=== PATIENT | female | born 2000 | race Caucasian/White ===

== ENCOUNTER → 2020-11-08 18:06 | Outpatient (CLI) | payer OTHER, SELFPAY ==
[2020-11-08 18:27] LABS: Basophils % 0.2 % (0.1-2.0); Eosinophils # 0.1 K/mm3 (0.0-0.4); Eosinophils % 0.7 % (0.1-12.0); Hematocrit 39.4 % (37.0-47.0); Hemoglobin 13.4 g/dL (12.2-16.2); Lymphocytes # 2.1 K/mm3 (0.7-4.5); Lymphocytes % 27.2 % (10-50); Mean Corpuscular Hemoglobin 27.4 pg (27.0-31.2); Mean Corpuscular Volume 80.4 fl (81-99); Mean Platelet Volume 8.8 fl (7.4-10.4); Monocytes # 0.3 K/mm3 (0.1-1.0); Monocytes % 4.3 % (1.7-9.3); Neutrophils # 5.2 K/mm3 (1.8-7.8); Neutrophils % 67.5 % (37.0-80.0); Platelet Count 341 K/mm3 (142-424); Red Cell Distribution Width 14.9 % (11.5-17.5); White Blood Count 7.7 K/mm3 (4.8-10.8)
[2020-11-08 20:19] LABS: Chloride 107 mmol/L (98-107); Potassium 4.6 mmoL/L (3.5-5.1); Sodium 142 mmol/L (136-145)
[2020-11-08 20:22] LABS: Alanine Aminotransferase 14 U/L (12-78); Albumin Level 4.7 g/dl (3.5-5.0); Albumin/Globulin Ratio 1.3 (1.1-1.8); Alkaline Phosphatase 113 U/L (38-126); Anion Gap 15.6 mEq/L (5-15); Aspartate Amino Transferase 23 U/L (14-36); Bilirubin,Total 0.6 mg/dl (0.2-1.3); Blood Urea Nitrogen 5 mg/dl (7-17); Calcium 9.6 mg/dl (8.4-10.2); Carbon Dioxide 24 mmol/L (22.0-30.0); Chol/HDL Ratio 5.4 (1-3.5); Cholesterol 211 mg/dl (140-200); Estimated Glomerular Filt Rate 105 ml/min (>60); GFR (African American) 127 ML/MIN (>60); Globulin 3.7 g/dL (1.3-3.2); Glucose 100 mg/dl (74-100); HDL Cholesterol 39 mg/dl (40-60); Total Protein,Serum 8.4 g/dl (6.3-8.2); Triglycerides 114 mg/dl (30-150); VLDL Cholesterol 23 mg/dL (0-40)
[2020-11-08 20:33] LABS: Direct LDL Cholesterol 153.41 mg/dL (100-129)
[2020-11-08 20:39] LABS: T4 (Thyroxine) 15.5 ug/dl (5.53-11.0)
[2020-11-08 20:53] LABS: Thyroid Stimulating Hormone 1.64 uIU/mL (0.465-4.68)
[2020-11-08 21:22] LABS: 25-OH Vitamin D, Total < 12.8 ng/mL (30-100)
== END ==
PROVIDERS: Visit Provider Nurse Practitioner Family
DX: J45.909 Unspecified asthma, uncomplicated (principal); E55.9 Vitamin D deficiency, unspecified; Z79.899 Other long term (current) drug therapy
CPT/HCPCS: 80053; 80061; 82306; 84436; 84443; 85025

== ENCOUNTER → 2020-12-30 08:16 | Outpatient (CLI) | payer OTHER, SELFPAY ==
--- NOTE | 2020-12-30 08:16 | US_ITS ---
PROCEDURE: US ABDOMEN LIMITED CLINICAL INDICATION: postprandial vomitng COMPARISON: No exams were available for comparison FINDINGS: PANCREAS: Unremarkable. No obvious mass or abnormal fluid collection. No ductal dilatation LIVER: No focal liver lesions demonstrated. Homogeneous echogenicity. No intrahepatic biliary ductal dilatation evident. There is appropriate direction of blood flow within a non dilated portal vein RIGHT KIDNEY: Unremarkable. Normal size and echogenicity. No hydronephrosis GALLBLADDER: The gallbladder is filled with stones. No gallbladder wall thickening, pericholecystic fluid, or biliary dilatation IMPRESSION: Cholelithiasis Dictated by: Yovany Aj MD 12/30/2020 14:19 Yovany Aj MD in [place] 12/30/2020 14:19
== END ==
PROVIDERS: PCP Physician Assistant; Visit Provider Physician Assistant
DX: R11.10 Vomiting, unspecified (principal)
CPT/HCPCS: 76705

== ENCOUNTER → 2021-01-18 15:07 | Outpatient (CLI) | payer OTHER, SELFPAY ==
[2021-01-18 15:41] LABS: Urine Pregnancy, HCG Qual. Negative (Negative)
[2021-01-18 15:52] LABS: Basophils # 0.1 K/mm3 (0-0.2); Basophils % 0.5 % (0.1-2.0); Eosinophils # 0.1 K/mm3 (0.0-0.4); Eosinophils % 0.7 % (0.1-12.0); Hematocrit 38.9 % (37.0-47.0); Hemoglobin 12.7 g/dL (12.2-16.2); Lymphocytes # 2.6 K/mm3 (0.7-4.5); Lymphocytes % 27.2 % (10-50); Mean Corpuscular HGB Conc 32.5 g/dL (31.8-35.4); Mean Corpuscular Hemoglobin 27.6 pg (27.0-31.2); Mean Corpuscular Volume 84.7 fl (81-99); Mean Platelet Volume 7.9 fl (7.4-10.4); Monocytes # 0.4 K/mm3 (0.1-1.0); Monocytes % 3.8 % (1.7-9.3); Neutrophils # 6.5 K/mm3 (1.8-7.8); Neutrophils % 67.7 % (37.0-80.0); Platelet Count 330 K/mm3 (142-424); Red Blood Count 4.59 M/mm3 (4.20-5.40); Red Cell Distribution Width 14.2 % (11.5-17.5); White Blood Count 9.5 K/mm3 (4.8-10.8)
[2021-01-18 17:39] LABS: Alanine Aminotransferase 20 U/L (12-78); Albumin Level 4.3 g/dl (3.5-5.0); Albumin/Globulin Ratio 1.1 (1.1-1.8); Alkaline Phosphatase 95 U/L (38-126); Anion Gap 19.9 mEq/L (5-15); Aspartate Amino Transferase 24 U/L (14-36); Bilirubin,Total 0.3 mg/dl (0.2-1.3); Blood Urea Nitrogen 8 mg/dl (7-17); Calcium 9.2 mg/dl (8.4-10.2); Carbon Dioxide 25 mmol/L (22.0-30.0); Chloride 101 mmol/L (98-107); Estimated Glomerular Filt Rate 105 ml/min (>60); GFR (African American) 127 ML/MIN (>60); Globulin 3.8 g/dL (1.3-3.2); Glucose 84 mg/dl (74-100); Potassium 3.9 mmoL/L (3.5-5.1); Sodium 142 mmol/L (136-145); Total Protein,Serum 8.1 g/dl (6.3-8.2)
== END ==
PROVIDERS: Visit Provider Surgery
DX: Z01.812 Encounter for preprocedural laboratory examination (principal); Z11.52 Encounter for screening for COVID-19; K80.20 Calculus of gallbladder without cholecystitis without obstruction
CPT/HCPCS: 36415; 80053; 81025; 85025; C9803; U0003; U0005

== ENCOUNTER 2021-01-20 07:27 | Day surgery (SDC) | payer OTHER, SELFPAY ==
[2021-01-18 10:09] VITALS: BMI 35.7
[2021-01-20] VITALS (11 sets, daily range): BP systolic 143–171; BP diastolic 78–102; PULSE 95–123; RESP 12–20; TEMP 36.3–43; O2SAT 97–100
--- NOTE | 2021-01-20 10:47 | HMH.OPNOTE ---
Date of procedure: 01/20/21 Pre-op Diagnosis:: Symptomatic cholelithiasis Post-op Diagnosis:: Same Procedure performed:: Laparoscopic cholecystectomy Surgeon:: Iglesia Choudhury MD Anesthesia: GETDylan Estimated blood loss (mL): 50 Operative findings:: Gallbladder essentially filled with stones Abdominal wall soft tissue injury secondary to size of gallbladder/contents creating increased blood loss at site of subxiphoid trocar Multilayer closure of subxiphoid site for hemostasis Operative note:: After informed consent was obtained, the patient was taken to the operating room and placed in the supine position. General anesthesia was induced and the abdomen was prepped and draped in a sterile fashion. After infiltration with local anesthetic an infraumbilical incision was made. A Veress needle was placed in position. The abdomen was insufflated. A 5 mm optical trocar was placed in position. Under direct visualization, a 12 mm trocar was placed in the subxiphoid position and 2 additional 5 mm trocars were placed in the right upper quadrant. The gallbladder was elevated up and over the liver margin. The tissue around the cystic duct was carefully dissected. 3 clips were placed proximally and the duct was transected with harmonic sowmya. Harmonic sowmya were then utilized to dissect the gallbladder away from the liver margin with careful attention to the control of the cystic artery. The gallbladder was placed in a retrieval bag and removed through the subxiphoid trocar site. The overall size of the gallbladder/contents created soft tissue injury with associated bleeding. A multilayer closure including the neoclose device, 0 Ethibond, and 0 Prolene was utilized to both close the fascia and achieve hemostasis. The right upper quadrant was thoroughly irrigated. No active bleeding or bile leak was noted. The remaining trocars were removed. All wounds were irrigated and skin was closed with 4-0 Monocryl in a subcuticular fashion. Steri-Strips were applied. The patient's anesthetic agents were reversed and extubation was completed prior to transfer to recovery in stable condition. Condition: stable Disposition: PACU Specimens:: Gallbladder Complications:: No immediate
--- NOTE | 2021-01-20 11:02 | HMH.ANESCL ---
[facility] Anesthesia Checklist - Patient Identification Patient Identification: Arm Band, Verbal (Name & ) - Structural Data Admitted From: Home Planned Operative Procedure/s: choly Consent for Planned Operative Procedure(s) Verified: Yes Verified Documents: History and Physical - NPO Status Verified Time NPO: 00:00 - Chart Verification Results Verified: CBC, BMP - Additional verifications Patient : No Anesthesia Reactions: No Hx Blood Transfusions: No Blood Transfusion Reaction: No Cephalosporin Allergy: No Previous Colonoscopy: No - Cardiovascular Assessment Heart Sounds: S1 & S2 Pulse Strength: Baseline Pulse Rhythm: Regular Peripheral Edema: No - Airway Assessment C-Spine Mobility Assessed: Yes TMJ Mobility Assessed: Yes Dentition: Good Dentition - Neurological Assessment Level of Consciousness: Awake, Alert, Appropriate Hx Seizures: No Numbness or tingling in extremities: No - Anesthesia Plan Anesthesia Risk discussed: Yes Anesthesia Plan: Verified ASA Class: II Anesthesia Type: General [facility] History I have reviewed the patient's past medical history: Yes Medical History: Reports:: Asthma, Gastroesophageal Reflux Disease(GERD), MRSA (cheek) Denies:: Cancer, Diabetes Mellitus Type 1, Diabetes Mellitus Type 2, Internal Pacemaker, Seizures *Have you ever received a pneumonia vaccine?: No *Have you received a flu vaccine this season?: No Other Medical History: Reports: Other. Denies: Blood Transfusion Reaction Anesthesia experience/problems:: none Other Surgeries: Yes: No Previous Surgery. No: Pacemaker Amputation: No Fractures: No - *Social History Last grade of school completed: Some college Smoking Status: Never smoker Alcohol Intake: never Substance Use Type: denies use *Occupational Status:: other Housing: house *Travel in the last 8 weeks: None Family Hx:: No significant family history
--- NOTE | 2021-01-20 11:03 | HMH.ANESI ---
[facility] Anesthesia Record Part I Intake, IV Amount: 850 Estimated blood loss (mL): 10 Urine output (mL): 0 Blood Products used (#): none Blood Pressure: 143/97 SaO2: 97 Pulse Rate: 100 Respiratory Rate: 20 Temperature: 97.3 F Patient is:: Awake, Stable Stable to PACU at:: 11:00
--- NOTE | 2021-01-21 07:50 | P.PN_ITS ---
[facility] Anesthesia Record Part II Discharge Time: 11:30 Destination: Surgical Day Care (OP Surgery) PACU nurse assessment reviewed?: Yes Patient Condition:: Good Anesthesia Complications:: None Swallowing reflex intact?: Yes Cyanosis?: No Blood Pressure: 149/81 Pulse Rate: 101 Temperature: 97.2 F Mental Status: Alert & Oriented Pain level:: 1 Nausea and/or vomitting:: None Intake, IV Amount: 50
[2021-01-21 07:51] VITALS: BP 149/81; PULSE 101; TEMP 36.2
== END 2021-01-20 12:40 | disposition home or self-care (01) ==
LOC: OR 07:29
PROVIDERS: PCP Physician Assistant; Visit Provider Surgery
PROC: 0FT44ZZ Resection of Gallbladder, Percutaneous Endoscopic Approach (ICD-10-PCS; CPT 47562; principal; 2021-01-20 09:15)
DX: K80.20 Calculus of gallbladder without cholecystitis without obstruction (principal); J45.909 Unspecified asthma, uncomplicated; K21.9 Gastro-esophageal reflux disease without esophagitis; Z86.14 Personal history of Methicillin resistant Staphylococcus aureus infection; Z79.899 Other long term (current) drug therapy
CPT/HCPCS: 47562; J2405; J2710

== ENCOUNTER → 2021-05-03 14:18 | Outpatient (CLI) | payer OTHER, SELFPAY | PROVIDERS: Visit Provider Nurse Practitioner | DX: Z20.822 Contact with and (suspected) exposure to COVID-19 (principal) | CPT/HCPCS: C9803; U0003; U0005 ==

== ENCOUNTER → 2021-05-27 19:46 | Outpatient (CLI) | payer OTHER, SELFPAY | PROVIDERS: PCP Physician Assistant; Visit Provider Nurse Practitioner Family | DX: U07.1 COVID-19 (principal) | CPT/HCPCS: C9803; U0003; U0005 ==

== ENCOUNTER → 2021-10-06 07:37 | Outpatient (CLI) | payer OTHER, SELFPAY ==
[2021-10-05 17:49] LABS: Alanine Aminotransferase 16 U/L (12-78); Albumin Level 4.3 g/dl (3.5-5.0); Albumin/Globulin Ratio 1.1 (1.1-1.8); Alkaline Phosphatase 95 U/L (38-126); Aspartate Amino Transferase 21 U/L (14-36); Bilirubin,Total 0.3 mg/dl (0.2-1.3); Blood Urea Nitrogen 8 mg/dl (7-17); Calcium 9.4 mg/dl (8.4-10.2); Carbon Dioxide 24 mmol/L (22.0-30.0); Chloride 105 mmol/L (98-107); Chol/HDL Ratio 5.1 (1-3.5); Cholesterol 203 mg/dl (140-200); Estimated Glomerular Filt Rate 104 ml/min (>60); GFR (African American) 125 ML/MIN (>60); Globulin 3.8 g/dL (1.3-3.2); Glucose 86 mg/dl (74-100); HDL Cholesterol 40 mg/dl (40-60); Sodium 140 mmol/L (136-145); Total Protein,Serum 8.1 g/dl (6.3-8.2); Triglycerides 121 mg/dl (30-150); VLDL Cholesterol 24 mg/dL (0-40)
[2021-10-05 17:54] LABS: Basophils # 0.1 K/mm3 (0-0.2); Basophils % 0.8 % (0.1-2.0); Eosinophils # 0.1 K/mm3 (0.0-0.4); Eosinophils % 0.5 % (0.1-12.0); Hematocrit 41.2 % (37.0-47.0); Hemoglobin 13.8 g/dL (12.2-16.2); Lymphocytes # 2.4 K/mm3 (0.7-4.5); Lymphocytes % 26.6 % (10-50); Mean Corpuscular HGB Conc 33.4 g/dL (31.8-35.4); Mean Corpuscular Hemoglobin 28.1 pg (27.0-31.2); Mean Corpuscular Volume 84.1 fl (81-99); Monocytes # 0.4 K/mm3 (0.1-1.0); Monocytes % 4.1 % (1.7-9.3); Neutrophils % 67.9 % (37.0-80.0); Platelet Count 408 K/mm3 (142-424); Red Cell Distribution Width 14.8 % (11.5-17.5); White Blood Count 8.9 K/mm3 (4.8-10.8)
[2021-10-05 18:00] LABS: Direct LDL Cholesterol 131.76 mg/dL (100-129)
[2021-10-05 18:06] LABS: 25-OH Vitamin D, Total 16.3 ng/mL (30-100)
[2021-10-05 18:19] LABS: Thyroid Stimulating Hormone 1.72 uIU/mL (0.465-4.68)
== END ==
PROVIDERS: PCP Physician Assistant; Visit Provider Physician Assistant
DX: I10 Essential (primary) hypertension (principal); E55.9 Vitamin D deficiency, unspecified; Z79.899 Other long term (current) drug therapy
CPT/HCPCS: 80053; 80061; 82306; 84443; 85025

== ENCOUNTER → 2021-12-05 16:39 | Outpatient (CLI) | payer OTHER, SELFPAY | PROVIDERS: PCP Physician Assistant; Visit Provider Physician Assistant | DX: R39.9 Unspecified symptoms and signs involving the genitourinary system (principal); B96.4 Proteus (mirabilis) (morganii) as the cause of diseases classified elsewhere | CPT/HCPCS: 87086; 87088; 87186 ==

== ENCOUNTER → 2022-03-12 14:31 | Outpatient (CLI) | payer OTHER, SELFPAY ==
[2022-03-14 21:08] LABS: QuantiFERON-TB Gold Plus Negative (Negative)
== END ==
PROVIDERS: PCP Physician Assistant; Visit Provider Physician Assistant
DX: Z11.1 Encounter for screening for respiratory tuberculosis (principal)
CPT/HCPCS: 36415; 86480

== ENCOUNTER 2022-04-19 12:22 | Emergency (ER) | payer OTHER, SELFPAY ==
[2022-04-19 13:50] VITALS: BP 140/81; PULSE 101; RESP 17; TEMP 36.9; O2SAT 98; BMI 37.9
--- NOTE | 2022-04-19 13:54 | EXP.UTC ---
Discharge Plan Disposition Patient Disposition: Home, Self-Care Condition: Good Prescriptions Prescriptions: New oseltamivir [Tamiflu] 75 mg capsule 75 mg PO BID Qty: 10 0RF ondansetron 4 mg Tablet,Disintegrating 4 mg PO Q8H PRN (Reason: Nausea) Qty: 20 0RF No Action escitalopram oxalate [Lexapro] 10 mg tablet 10 mg PO DAILY Qty: 30 2RF azithromycin [Zithromax Z-Cody] 250 mg tablet See Rx Instructions PO .COMPLEX Qty: 6 0RF Rx Instructions: For 250 mg dose pack: take 500 mg today (day 1), then 250 mg for 4 days (days 2-5) PO albuterol sulfate [Ventolin HFA] 90 mcg/actuation HFA aerosol inhaler 2 puff INHALATION Q4-6H PRN (Reason: shortness of breath or wheezing) Qty: 6.7 5RF Rx Instructions: administer with spacer levocetirizine [Xyzal] 5 mg tablet 5 mg PO DAILY fluticasone propionate [Flovent HFA] 110 mcg/actuation HFA aerosol inhaler IH norgestimate-ethinyl estradiol [Sprintec (28)] 0.25-35 mg-mcg tablet 1 tab PO DAILY Qty: 28 11RF ergocalciferol (vitamin D2) 1,250 mcg (50,000 unit) capsule 50,000 unit PO WEEKLY cholecalciferol (vitamin D3) 25 mcg (1,000 unit) tablet 25 mcg PO epinephrine 0.3 mg/0.3 mL auto-injector 0.3 mg SQ ONCE Qty: 2 0RF nebivolol [Bystolic] 2.5 mg tablet 2.5 mg PO DAILY Qty: 90 3RF famotidine 40 mg tablet See Rx Instructions .ROUTE .COMPLEX Qty: 30 2RF Dose Instruction: TAKE ONE TABLET BY MOUTH ONCE A DAY FOR HEARTBURN Rx Instructions: TAKE ONE TABLET BY MOUTH ONCE A DAY FOR HEARTBURN montelukast 10 mg tablet See Rx Instructions .ROUTE .COMPLEX Qty: 30 2RF Dose Instruction: TAKE ONE TABLET BY MOUTH EVERY EVENING FOR ALLERGIES Rx Instructions: TAKE ONE TABLET BY MOUTH EVERY EVENING FOR ALLERGIES azelastine 137 MCG/0.137 ML bottle 137 mcg NS DAILY Referrals Follow up/Referrals: Helena Bishop PA [Primary Care Provider] - See instructions Activity Restrictions/Add. Instructions Additional Instructions/Restrictions: Drink plenty of fluids. Take tylenol or ibuprofen for pain or fever. Take the medications as directed. Follow up with your regular doctor. GO TO THE ER FOR ANY WORSENING SYMPTOMS Clinical Impressions Clinical Impression: Acute viral syndrome Stand Alone Forms Stand Alone Forms: Work/School Release Instructions Patient Instructions: DI for Influenza -- Adult, Oseltamivir Discharge ED Provider: Ike Maria [facility] [place] H[place] General Stated complaint: congestion, runny nose, chills, body aches Time Seen by Provider: 04/19/22 13:53 History of Present Illness Provider Complaint: She states that for the past 2 days she has had fever, chills, and a cough. She was diagnosed with strep throat about 5 days ago. She states that she is still taking the medication, but she felt better from the strep throat before her current symptoms started. Related Data Home Medications Medication Instructions Recorded Confirmed levocetirizine 5 mg tablet (Xyzal) 5 mg PO DAILY alergies 08/03/20 04/16/22 azelastine 137 mcg (0.1 %) nasal 137 mcg intranasal DAILY ALLERGIES 01/18/21 04/16/22 spray aerosol fluticasone propionate 110 inhalation 10/05/21 04/16/22 mcg/actuation HFA aerosol inhaler (Flovent HFA) cholecalciferol (vitamin D3) 25 25 mcg PO 03/15/22 04/16/22 mcg (1,000 unit) tablet ergocalciferol (vitamin D2) 1,250 50,000 unit PO WEEKLY 03/15/22 04/16/22 mcg (50,000 unit) capsule Previous Rx's Medication Instructions Recorded albuterol sulfate 90 mcg/actuation 2 puff inhalation Q4-6H PRN 03/24/20 aerosol inhaler (Ventolin HFA) shortness of breath or wheezing #6.7 grams epinephrine 0.3 mg/0.3 mL 0.3 mg (0.3 mL) SQ ONCE #2 ea 10/06/21 injection, auto-injector nebivolol 2.5 mg tablet (Bystolic) 2.5 mg PO DAILY #90 tabs 01/02/22 norgestimate 0.25 mg-ethinyl 1 tab PO DAILY #28 tabs 02/09/22 estradiol 35 mcg tablet (Spri
[2022-04-19 14:08] LABS: Adenovirus,PCR Not Detected (NotDetected); Bordetella Pertussis Not Detected (NotDetected); Chlamydophila Pneumoniae, PCR Not Detected (NotDetected); Coronavirus 229E Not Detected (NotDetected); Coronavirus NL63 Not Detected (NotDetected); Coronavirus OC43 Not Detected (NotDetected); Coronovirus HKU1,PCR Not Detected (NotDetected); Human Metapneumovirus Not Detected (NotDetected); Influenza A, PCR Not Detected (NotDetected); Influenza AH1, 2009 Not Detected (NotDetected); Influenza AH1, PCR Not Detected (NotDetected); Influenza AH3,PCR Not Detected (NotDetected); Influenza B, PCR Not Detected (NotDetected); Mycoplasma Pneumoniae, PCR Not Detected (NotDetected); Parainfluenza 1, PCR Not Detected (NotDetected); Parainfluenza 2, PCR Not Detected (NotDetected); Parainfluenza 3, PCR Not Detected (NotDetected); Parainfluenza 4, PCR Not Detected (NotDetected); Respiratory Syncytial Virus Not Detected (NotDetected); Rhinovirus/Enterovirus Not Detected (NotDetected)
[2022-04-19 14:20] VITALS: BP 140/81; PULSE 101; RESP 17; TEMP 36.9; O2SAT 98
[2022-04-20 04:41] LABS: Coronavirus 19, PCR Detected (NotDetected)
== END 2022-04-19 14:42 | disposition home or self-care (01) ==
PROVIDERS: Emergency Provider Nurse Practitioner Family; PCP Physician Assistant
DX: U07.1 COVID-19 (principal)
CPT/HCPCS: 87581; 87632; 87798; 99212; C9803; G0463; U0003; U0005

== ENCOUNTER 2022-09-28 14:34 | Emergency (ER) | payer OTHER, SELFPAY ==
[2022-09-28 14:40] VITALS: BP 149/75; PULSE 103; RESP 22; TEMP 37; O2SAT 96; BMI 35.6
[2022-09-28 14:54] LABS: Apearance,Urine Clear (Clear); Color,Urine Yellow (Yellow); Glucose,Urine (UA) Negative (Negative); Ketones,Urine Negative (Negative); Protein,Urine 1+ (Negative)
[2022-09-28 14:55] LABS: Bilirubin,Urine 1+ (Negative); Blood, Urine 1+ (Negative); UTC Leukocyte Esterase,Urine Negative (Negative); UTC Nitrate,Urine Negative (Negative); Urobilinogen,Urine 0.2 EU/dl (0.2)
[2022-09-28 14:57] VITALS: BP 149/75; PULSE 103; RESP 22; TEMP 37; O2SAT 96
--- NOTE | 2022-09-28 15:03 | EXP.UTC ---
Discharge Plan Disposition Patient Disposition: Home, Self-Care Condition: Good Prescriptions Prescriptions: New phenazopyridine [Pyridium] 200 mg tablet 200 mg PO Q8H PRN (Reason: pain) Qty: 6 0RF ciprofloxacin HCl [Cipro] 500 mg tablet 500 mg PO BID 5 Days Qty: 10 0RF No Action levocetirizine [Xyzal] 5 mg tablet 5 mg PO DAILY norgestimate-ethinyl estradiol [Sprintec (28)] 0.25-35 mg-mcg tablet 1 tab PO DAILY famotidine 40 mg tablet 40 mg PO DAILY Rx Instructions: TAKE ONE TABLET BY MOUTH ONCE A DAY FOR HEARTBURN montelukast 10 mg tablet 10 mg PO DAILY Rx Instructions: TAKE ONE TABLET BY MOUTH EVERY EVENING FOR ALLERGIES escitalopram oxalate [Lexapro] 10 mg tablet 10 mg PO DAILY nebivolol 2.5 mg tablet 2.5 mg PO DAILY Rx Instructions: TAKE ONE TABLET BY MOUTH ONCE A DAY Referrals Follow up/Referrals: Helena Bishop PA [Primary Care Provider] - See instructions Activity Restrictions/Add. Instructions Additional Instructions/Restrictions: Take all antibiotics as prescribed until gone Urine culture results should be available in 48-72 hours Clinical Impressions Clinical Impression: UTI (urinary tract infection) Instructions Patient Instructions: DI for Urinary Tract Infection (UTI) Discharge ED Provider: Helena Bishop [facility] General Stated complaint: possible uti Mode of Arrival: Ambulatory Source of Information: Patient Limitations: No Limitations Time Seen by Provider: 09/28/22 15:03 Description of Symptoms (Recalled from Triage Doc. by RN): PATIENT C/O URINARY FREQUENCY, LOWER BACK PAIN, PELVIC PRESSURE, AND BURNING WITH URINATION SINCE SATURDAY HEENT Symptoms (Recalled from RN notes): No Resp Symptoms (Recalled from RN notes): No Skin Symptoms (Recalled from RN notes): No MS Symptoms (Recalled from RN notes): No Functional Status (Recalled from RN notes): WNL History of Present Illness Provider Complaint: Low back pain, dysuria, frequency, pressure X 2 days. No fever. No vomiting or diarrhea. Onset (ago): day(s) (2) Location: pelvis Quality: burning Relieving factors: none Exacerbating factors: none Treatments prior to arrival: none Related Data Home Medications Medication Instructions Recorded Confirmed levocetirizine 5 mg tablet (Xyzal) 5 mg PO DAILY Allergy symptoms 08/03/20 09/28/22 escitalopram oxalate 10 mg tablet 10 mg PO DAILY Depression 09/28/22 09/28/22 (Lexapro) famotidine 40 mg tablet 40 mg PO DAILY Acid reflux 09/28/22 09/28/22 montelukast 10 mg tablet 10 mg PO DAILY Allergy symptoms 09/28/22 09/28/22 nebivolol 2.5 mg tablet 2.5 mg PO DAILY Hypertension 09/28/22 09/28/22 norgestimate 0.25 mg-ethinyl 1 tab PO DAILY control 09/28/22 09/28/22 estradiol 35 mcg tablet (Sprintec (28)) Previous Rx's Medication Instructions Recorded ciprofloxacin HCl 500 mg tablet 500 mg PO BID 5 days #10 tabs 09/28/22 (Cipro) phenazopyridine 200 mg tablet 200 mg PO Q8H PRN pain 6 doses #6 09/28/22 (Pyridium) tabs Allergies Allergy/AdvReac Type Severity Reaction Status Date / Time Penicillins [PENICILLINS] Allergy Unknown Verified 05/14/22 16:18 peanut AdvReac Severe Verified 05/14/22 16:18 paroxetine [From Paxil] AdvReac Intermediate Diarrhea Verified 05/14/22 16:18 Worker's Comp Is this a Worker's Comp case?: No [facility] Disclaimer: The information contained in this section may have been updated after the patient was seen, as this information can be updated by other users. Medical History (Updated 09/28/22 @ 15:08 by JERI Bosch) Allergic rhinitis Anxiety Asthma control History of gastroesophageal reflux (GERD) Hypertension Hypertension Surgical History History of cholecystectomy Social History Smoking Status: Never smoker alcohol intake: nev
== END 2022-09-28 15:11 | disposition home or self-care (01) ==
PROVIDERS: Emergency Provider Physician Assistant; PCP Physician Assistant
DX: N39.0 Urinary tract infection, site not specified (principal); M54.59 Other low back pain; I10 Essential (primary) hypertension; K21.9 Gastro-esophageal reflux disease without esophagitis; J45.909 Unspecified asthma, uncomplicated; F41.9 Anxiety disorder, unspecified; B96.4 Proteus (mirabilis) (morganii) as the cause of diseases classified elsewhere
CPT/HCPCS: 81003; 87086; 87088; 87186; 99212; 99214; G0463

== ENCOUNTER → 2022-11-12 23:29 | Outpatient (CLI) | payer OTHER, SELFPAY | PROVIDERS: PCP Physician Assistant; Visit Provider Physician Assistant | DX: M54.50 Low back pain, unspecified (principal) | CPT/HCPCS: 87086 ==

== ENCOUNTER 2023-06-05 13:13 | Emergency (ER) | payer OTHER, SELFPAY ==
[2023-06-05 13:55] VITALS: BP 147/90; PULSE 87; RESP 18; TEMP 37.1; O2SAT 100; BMI 38.2
--- NOTE | 2023-06-05 14:02 | ED_ITS ---
Discharge Plan Disposition Patient Disposition: Home, Self-Care Condition: Good Prescriptions Prescriptions: New methylprednisolone 4 mg Tablets,Dose Pack 4 mg PO DIRECTED 6 Days Qty: 21 0RF Rx Instructions: Take 1 pack as directed for 6 days [id number] [Bromfed DM] 2-30-10 mg/5 mL Syrup 5 ml PO Q6H PRN (Reason: Cough) Qty: 240 0RF cefdinir 300 mg capsule 300 mg PO BID Qty: 20 0RF No Action levocetirizine [Xyzal] 5 mg tablet 5 mg PO DAILY albuterol sulfate [ProAir HFA] 90 mcg/actuation HFA aerosol inhaler 1 inh inhalation QID fluticasone propionate [Flovent HFA] 44 mcg/actuation HFA aerosol inhaler 1 puff inhalation BID Rx Instructions: administer with spacer norgestimate-ethinyl estradiol [Estarylla] 0.25-35 mg-mcg tablet 1 tab PO DAILY Qty: 28 12RF famotidine 40 mg tablet 40 mg PO DAILY Qty: 90 3RF Rx Instructions: TAKE ONE TABLET BY MOUTH ONCE A DAY FOR HEARTBURN nebivolol 2.5 mg tablet See Rx Instructions .ROUTE .COMPLEX Qty: 90 0RF Dose Instruction: TAKE ONE TABLET BY MOUTH ONCE A DAY Rx Instructions: TAKE ONE TABLET BY MOUTH ONCE A DAY montelukast 10 mg tablet 10 mg PO DAILY Rx Instructions: TAKE ONE TABLET BY MOUTH EVERY EVENING FOR ALLERGIES Referrals Follow up/Referrals: Helena Bishop PA [Primary Care Provider] - See instructions Activity Restrictions/Add. Instructions Additional Instructions/Restrictions: Drink plenty of fluids. Take tylenol for pain or fever. Take the medications as directed. Follow up with your regular doctor. GO TO THE ER FOR ANY WORSENING SYMPTOMS Clinical Impressions Clinical Impression: Asthma exacerbation, Bronchitis Stand Alone Forms Stand Alone Forms: Work/School Release Instructions Patient Instructions: DI for Asthma -- Adult, Cefdinir, Methylprednisolone Discharge ED Provider: Ike Maria [facility] [place] General Stated complaint: SOA, cough Time Seen by Provider: 06/05/23 14:02 History of Present Illness Provider Complaint: She states that for the past 4 days she has had worsening productive cough (greenish sputum), sinus congestion, ear pain, and chest tightness. She has a history of asthma and she states that she feels like she is having an asthma exacerbation. She denies shortness of breath. Related Data Home Medications Medication Instructions Recorded Confirmed levocetirizine 5 mg tablet (Xyzal) 5 mg PO DAILY Allergy symptoms 08/03/20 06/05/23 montelukast 10 mg tablet 10 mg PO DAILY Allergy symptoms 09/28/22 06/05/23 albuterol sulfate 90 mcg/actuation 1 inh inhalation QID 02/20/23 06/05/23 aerosol inhaler (ProAir HFA) fluticasone propionate 44 1 puff inhalation BID 02/20/23 06/05/23 mcg/actuation HFA aerosol inhaler (Flovent HFA) Previous Rx's Medication Instructions Recorded famotidine 40 mg tablet 40 mg PO DAILY Acid reflux #90 tabs 11/06/22 norgestimate 0.25 mg-ethinyl 1 tab PO DAILY #28 tabs 02/20/23 estradiol 35 mcg tablet (Estarylla) nebivolol 2.5 mg tablet See Rx Instructions .Route 05/30/23 .COMPLEX #90 tabs [id number]-[id number] 5 ml PO Q6H PRN Cough #240 mL 06/05/23 2 mg-30 mg-10 mg/5 mL oral syrup (Bromfed DM) cefdinir 300 mg capsule 300 mg PO BID #20 caps 06/05/23 methylprednisolone 4 mg tablets in 4 mg PO DIRECTED 6 days #21 tabs 06/05/23 a dose pack Allergies Allergy/AdvReac Type Severity Reaction Status Date / Time Penicillins [PENICILLINS] Allergy Unknown Verified 06/05/23 14:09 peanut AdvReac Severe Verified 06/05/23 14:09 paroxetine [From Paxil] AdvReac Intermediate Diarrhea Verified 06/05/23 14:09 PFSH PFSH Disclaimer: The information contained in this section may have been updated after the patient was seen, as this information can be updated by other users. 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: Yes ROS Obtained: Yes All systems reviewed & no additional complaints except as documented Constitutional Constitutional: Reports poor appetite Eyes Eyes: Reports system reviewed and no additional complaints, except as documented ENT Ears, Nose, Mouth, and Throat: Reports as per HPI Cardiovascular Cardiovascular: Reports system reviewed and no additional complaints, except as documented and Denies chest pain Respiratory Respiratory: Denies shortness of breath, Reports chest congestion, Reports cough, Denies stridor and Denies wheezing Gastrointestinal Gastrointestingal: Reports system reviewed and no additional complaints, except as documented; Denies abdominal pain, diarrhea or vomiting Musculoskeletal Musculoskeletal: Reports system reviewed and no additional complaints, except as documented and Denies arthralgias Integumentary/Breasts Skin/Breast: Reports system reviewed and no additional complaints, except as documented and Denies rash Neurologic Neurologic: Denies paresthesias Allergic/Immunologic Allergic/Immunologic: Denies wheezing Physical Exam General General appearance: alert and in no apparent distress Eye Eye exam: Present normal appearance, PERRL and EOMI ENT ENT exam: Present mucous membranes moist and normal external ear exam Expanded ENT Exam External ear exam: Present normal external inspection TM/Canal exam: Bilateral TM: erythema and bulging Nose exam: Absent sinus tenderness Nasal speculum exam: Bilateral: normal Mouth exam: Present normal external inspection; Absent drooling Teeth exam: Present normal inspection Throat exam: Present tonsillar erythema and tonsillomegaly Neck Neck exam: Present normal inspection, full ROM and trachea midline; Absent tenderness, lymphadenopathy or thyromegaly Chest Chest inspection: Present normal inspection and symmetric chest wall rise; Absent tenderness or rash Respiratory Respiratory exam: Present normal lung sounds bilaterally; Absent respiratory distress, wheezes, stridor or accessory muscle use Cardiovascular Cardiovascular exam: Present regular rate, normal rhythm and normal heart sounds Abdominal Exam Abdominal exam: Present soft; Absent distention, tenderness, guarding, rebound or rigidity Extremities Exam Extremities exam: Present normal inspection, full ROM and normal capillary r efill; Absent tenderness or calf tenderness Back Exam Back exam: Present normal inspection and full ROM; Absent tenderness Neurological Exam Neurological exam: Present alert and oriented X3 Psychiatric Psychiatric exam: Present normal affect and normal mood Skin Skin exam: Present warm, dry, intact and normal color Lymphatic Lymphatic Findings: no adenopathy Medical Decision Making Medical Records Medical records reviewed: No I reviewed the patient's medical records. Abdifatah Inquiry Pt receiving controlled substance: No
[2023-06-05 15:13] LABS: UTC Influenza A Antigen Negative (Negative)
[2023-06-05 15:14] LABS: UTC Influenza B Antigen Negative (Negative)
[2023-06-05 15:21] VITALS: BP 147/90; PULSE 87; RESP 18; TEMP 37.1; O2SAT 100
== END 2023-06-05 15:15 | disposition home or self-care (01) ==
PROVIDERS: Emergency Provider Nurse Practitioner Family; PCP Physician Assistant
DX: J20.9 Acute bronchitis, unspecified (principal); J45.901 Unspecified asthma with (acute) exacerbation; H92.03 Otalgia, bilateral; R09.81 Nasal congestion; R05.8 Other specified cough; R09.89 Other specified symptoms and signs involving the circulatory and respiratory systems; I10 Essential (primary) hypertension
CPT/HCPCS: 87804; 99212; 99214; G0463

== ENCOUNTER 2023-08-08 13:43 | Emergency (ER) | payer OTHER, SELFPAY ==
[2023-08-08 14:05] VITALS: BP 143/81; PULSE 95; RESP 20; TEMP 36.6; O2SAT 97; BMI 36.6
[2023-08-08 14:18] LABS: Apearance,Urine Clear (Clear); Bilirubin,Urine Negative (Negative); Blood, Urine Negative (Negative); Color,Urine Dark Yellow (Yellow); Glucose,Urine (UA) Negative (Negative); Ketones,Urine Negative (Negative); Protein,Urine Trace (Negative); Specific Gravity, Urine 1.025 (1.005-1.030); UTC Leukocyte Esterase,Urine Trace (Negative); UTC Nitrate,Urine Negative (Negative); Urobilinogen,Urine 0.2 EU/dl (0.2)
[2023-08-08 14:22] VITALS: BP 143/81; PULSE 95; RESP 20; TEMP 36.6; O2SAT 97
--- NOTE | 2023-08-08 14:23 | EXP.UTC ---
Discharge Plan Disposition Patient Disposition: Home, Self-Care Condition: Good Prescriptions Prescriptions: New phenazopyridine [Pyridium] 200 mg tablet 200 mg PO Q8H 2 Days Qty: 6 0RF nitrofurantoin monohyd/m-cryst [Macrobid] 100 mg capsule 100 mg PO Q12H 7 Days Qty: 14 0RF Rx Instructions: must administer with a meal/food No Action levocetirizine [Xyzal] 5 mg tablet 5 mg PO DAILY norgestimate-ethinyl estradiol [Estarylla] 0.25-35 mg-mcg tablet 1 tab PO DAILY Qty: 28 12RF famotidine 40 mg tablet 40 mg PO DAILY Qty: 90 3RF Rx Instructions: TAKE ONE TABLET BY MOUTH ONCE A DAY FOR HEARTBURN nebivolol 2.5 mg tablet See Rx Instructions .ROUTE .COMPLEX Qty: 90 0RF Dose Instruction: TAKE ONE TABLET BY MOUTH ONCE A DAY Rx Instructions: TAKE ONE TABLET BY MOUTH ONCE A DAY montelukast 10 mg tablet 10 mg PO DAILY Rx Instructions: TAKE ONE TABLET BY MOUTH EVERY EVENING FOR ALLERGIES Referrals Follow up/Referrals: Helena Bishop PA [Primary Care Provider] - See instructions Activity Restrictions/Add. Instructions Additional Instructions/Restrictions: *Increase fluids. Water not Soda or Tea *Start antibiotic immediately and be sure to take as ordered for the FULL length of time although you should start to see improvement over the next 48 hours *Pyridium as needed Remember this medication will turn your urine . This is normal but it will stain what ever it gets on *You should not use Pyridium for more than 48 hours. If so , follow up with your primary physician to review urine culture and ensure that antibiotic is adequate for infection *Be SURE to follow up anytime for new or worsening symptoms with your family doctor. AND in 48 hours for urine culture results with your family doctor, if you do not have a doctor then you may call back to the [facility] for urine culture results and further treatment. We do recommend that you choose and establish care with a Primary Care Physician. ?AND follow up with them ?in 10-14 days to repeat UA to ensure infection is resolved and blood no longer present *Be sure to let your PCP know that we sent urine cultures from the [facility] so they can follow up to ensure that you area the on the correct antibiotic Call your doctor office and make appointment for 48 hours (2 days from today) ?to follow up and get the results of your urine culture and further treatment Clinical Impressions Clinical Impression: UTI (urinary tract infection) Instructions Patient Instructions: DI for Urinary Tract Infection (UTI), Nitrofurantoin Discharge ED Provider: Ivette Patel [facility] [place] HPI General Stated complaint: uti pain Mode of Arrival: Ambulatory Source of Information: Patient Limitations: No Limitations Time Seen by Provider: 08/08/23 14:23 Description of Symptoms (Recalled from Triage Doc. by RN): PATIENT C/O LOWER BACK AND PELVIC PAIN AND UNCOMFORTABLE WITH URINATION SINCE SATURDAY HE Symptoms (Recalled from RN notes): No Resp Symptoms (Recalled from RN notes): No Skin Symptoms (Recalled from RN notes): No MS Symptoms (Recalled from RN notes): No Functional Status (Recalled from RN notes): WNL History of Present Illness Provider Complaint: Patient states that she thinks she has a UTI States that she has been having achy like pain in her lower back and pressure and discomfort in her pelvic area when she urinates and it feels uncomfortable so today when she was still having symptoms she came in to get checked Related Data Home Medications Medication Instructions Recorded Confirmed levocetirizine 5 mg tablet (Xyzal) 5 mg PO DAILY Allergy symptoms 08/03/20 08/08/23 montelukast 10 mg tablet 10 mg PO DAILY Allergy symptoms 09/28/22 08/08/23 Previous Rx's Medication Instructions Recorded famotidine 40 mg tablet 40 mg PO DAILY Acid reflux #90 tabs 11/06/22 norgestimate 0.25 mg-ethinyl 1 tab PO DAILY #28 tabs 02/20/23 estradiol 35 mcg tablet (Estarylla) nebivolol 2.5 mg tablet See Rx Instructions .Route 05/30/23 .COMPLEX #90 tabs nitrofurantoin 100 mg PO Q12H 7 days #14 caps 08/08/23 monohydrate/macrocrystals 100 mg capsule (Macrobid) phenazopyridine 200 mg tablet 200 mg PO Q8H pain 2 days #6 tabs 08/08/23 (Pyridium) Allergies Allergy/AdvReac Type Severity Reaction Status Date / Time Penicillins [PENICILLINS] Allergy Unknown Verified 06/05/23 14:09 peanut AdvReac Severe Verified 06/05/23 14:09 paroxetine [From Paxil] AdvReac Intermediate Diarrhea Verified 06/05/23 14:09 Worker's Comp Is this a Worker's Comp case?: No [facility] Disclaimer: The information contained in this section may have been updated after the patient was seen, as this information can be updated by other users. Medical History Allergic rhinitis Anxiety Asthma control History of gastroesophageal reflux (GERD) Hypertension Hypertension Surgical History History of cholecystectomy Family History Other Asthma Cancer Coronary artery disease Diabetes FHx: mental illness Heart attack Hypertension Kidney disease Stroke Thyroid disorder Social History Smoking Status: Never smoker alcohol intake: never substance use type: denies use current occupational status: other Travel in the last 8 weeks: None housing: house current occupation: [employer] caffeine: Yes ROS Obtained: Yes All systems reviewed & no additional complaints except as documented and Yes Systems reviewed as appropriate & no additional complaints except as documented Constitutional Constitutional: Reports system reviewed and no additional complaints, except as documented, Reports as per HPI, Denies body ache, Denies chills and Denies fever(s) ENT Ears, Nose, Mouth, and Throat: Reports system reviewed and no additional complaints, except as documented and Reports as per HPI Cardiovascular Cardiovascular: Reports system reviewed and no additional complaints, except as documented and Reports as per HPI Respiratory Respiratory: Reports system reviewed and no additional complaints, except as documented and Reports as per HPI Gastrointestinal Gastrointestingal: Reports system reviewed and no additional complaints, except as documented and as per HPI; Denies abdominal pain Genitourinary Female Genitourinary: Reports system reviewed and no additional complaints, except as documented, Reports as per HPI, Reports dysuria, Reports flank pain, Reports urinary frequency, Reports urinary urgency and Reports other (pressure like feeling when she urinates ) Musculoskeletal Musculoskeletal: Reports system reviewed and no additional complaints, except as documented and Reports as per HPI Physical Exam General General appearance: alert and in no apparent distress ENT ENT exam: Present mucous membranes moist Respiratory Respiratory exam: Present normal lung sounds bilaterally; Absent respiratory distress or wheezes Cardiovascular Cardiovascular exam: Present regular rate, normal rhythm and normal heart sounds Abdominal Exam Abdominal exam: Present soft and normal bowel sounds; Absent distention or tenderness Neurological Exam Neurological exam: Present alert, oriented X3 and normal gait Medical Decision Making Abdifatah Inquiry Pt receiving controlled substance: No Abdifatah was queried for this patient: No Vital Signs: 08/08/23 14:05 08/08/23 14:22 Temperature 97.8 F 97.8 F Temperature Source Oral Pulse Rate 95 H Pulse Rate [Left Brachial] 95 H Respiratory Rate 20 20 Blood Pressure 143/81 H Blood Pressure [Left Arm] 143/81 H Blood Pressure Mean [Left Arm] 101 Blood Pressure Source [Left Arm] Automatic Cuff Blood Pressure Position [Left Arm] Sitting 02 Sat by Pulse Oximetry 97 Oxygen Delivery Method Room Air Lab Data Lab results reviewed: Yes I reviewed the patient's lab results. Lab Results 08/08/23 14:09: Urine Color Dark yellow, Urine Appearance Clear, Urine pH 6.0, Ur Specific [place]well 1.025, Urine Protein Trace, Urine Glucose (UA) Negative, Urine Ketones Negative, Urine Blood Negative, Urine Nitrate Negative, Urine Bilirubin Negative, Urine Urobilinogen 0.2, Ur Leukocyte Esterase Trace
== END 2023-08-08 14:39 | disposition home or self-care (01) ==
PROVIDERS: Emergency Provider Nurse Practitioner; PCP Physician Assistant
DX: N39.0 Urinary tract infection, site not specified (principal); B96.89 Other specified bacterial agents as the cause of diseases classified elsewhere; M54.59 Other low back pain; I10 Essential (primary) hypertension
CPT/HCPCS: 81003; 87086; 99212; 99214; G0463

== ENCOUNTER 2024-01-03 10:08 | Outpatient (CLI) | payer OTHER, SELFPAY ==
[2024-01-03 16:19] LABS: Basophils # 0.1 K/mm3 (0-0.2); Basophils % 0.6 % (0.1-2.0); Eosinophils # 0.1 K/mm3 (0.0-0.4); Eosinophils % 0.7 % (0.1-12.0); Hematocrit 40.1 % (37.0-47.0); Hemoglobin 12.8 g/dL (12.2-16.2); Lymphocytes # 2.5 K/mm3 (0.7-4.5); Lymphocytes % 28.6 % (10-50); Mean Corpuscular HGB Conc 31.9 g/dL (31.8-35.4); Mean Corpuscular Hemoglobin 27.2 pg (27.0-31.2); Mean Corpuscular Volume 85.4 fl (81-99); Mean Platelet Volume 8.4 fl (7.4-10.4); Monocytes # 0.3 K/mm3 (0.1-1.0); Monocytes % 2.9 % (1.7-9.3); Neutrophils # 5.9 K/mm3 (1.8-7.8); Neutrophils % 67.2 % (37.0-80.0); Platelet Count 379 K/mm3 (142-424); Red Blood Count 4.69 M/mm3 (4.20-5.40); Red Cell Distribution Width 15.5 % (11.5-17.5); White Blood Count 8.8 K/mm3 (4.8-10.8)
[2024-01-03 16:46] LABS: Albumin Level 4.3 g/dl (3.5-5.0); Chloride 107 mmol/L (98-107); Sodium 138 mmol/L (136-145)
[2024-01-03 16:47] LABS: Potassium 4.2 mmoL/L (3.5-5.1)
[2024-01-03 16:49] LABS: Alanine Aminotransferase 18 U/L (12-78); Albumin/Globulin Ratio 1.2 (1.1-1.8); Alkaline Phosphatase 85 U/L (38-126); Anion Gap 13.2 mEq/L (5-15); Aspartate Amino Transferase 21 U/L (14-36); Bilirubin,Total 0.6 mg/dl (0.2-1.3); Blood Urea Nitrogen 4 mg/dl (7-17); Carbon Dioxide 22 mmol/L (22.0-30.0); Cholesterol 184 mg/dl (140-200); Estimated Glomerular Filt Rate 122 ml/min (>60); GFR (African American) 147 ML/MIN (>60); Globulin 3.7 g/dL (1.3-3.2); Triglycerides 175 mg/dl (30-150); VLDL Cholesterol 35 mg/dL (0-40)
[2024-01-03 16:50] LABS: Chol/HDL Ratio 4.4 (1-3.5); Glucose 81 mg/dl (74-100); HDL Cholesterol 42 mg/dl (40-60)
[2024-01-03 17:01] LABS: Direct LDL Cholesterol 117.69 mg/dL (100-129)
[2024-01-03 17:06] LABS: 25-OH Vitamin D, Total 22.3 ng/mL (30-100)
== END 2024-01-03 23:59 | disposition home or self-care (01) ==
LOC: LAB.DROPOF 01-06 10:08
PROVIDERS: PCP Physician Assistant; Visit Provider Physician Assistant
DX: E55.9 Vitamin D deficiency, unspecified (principal); I10 Essential (primary) hypertension; N39.0 Urinary tract infection, site not specified; B96.4 Proteus (mirabilis) (morganii) as the cause of diseases classified elsewhere
CPT/HCPCS: 80050; 80053; 80061; 82306; 84443; 85025; 87086; 87088; 87186

== ENCOUNTER 2024-01-20 09:12 | Outpatient (CLI) | payer OTHER, SELFPAY ==
--- NOTE | 2024-01-20 09:12 | US_ITS ---
FINAL REPORT TECHNIQUE: Sonographic imaging of the urinary bladder was obtained. CLINICAL HISTORY: recurrent uti FINDINGS: The urinary bladder demonstrates no wall thickening or filling defect. Prevoid volume measures 120 cc. There is no postvoid residual. Bilateral ureteral jets are visualized. IMPRESSION: Unremarkable urinary bladder with no postvoid residual. Reviewed, Interpreted and Dictated by Daysi Roberts MD Transcribed by Ilene Day Authenticated and . [facility]
--- NOTE | 2024-01-20 09:12 | US_ITS ---
FINAL REPORT TECHNIQUE: Ultrasound images of the kidneys and bladder were obtained. CLINICAL HISTORY: . Recurrent UTI FINDINGS: The right kidney measures 10.8 cm in length. It is normal in echogenicity. There is no hydronephrosis. The left kidney measures 10.7 cm in length. It is normal in echogenicity. There is no hydronephrosis. Spleen measures 10.7 cm and is unremarkable. IMPRESSION: Morphologically normal kidneys. Reviewed, Interpreted and Dictated by Daysi Roberts MD Transcribed by Ilene Day Authenticated and . [facility]
== END 2024-01-20 23:59 | disposition home or self-care (01) ==
LOC: RAD 09:12
PROVIDERS: PCP Physician Assistant; Visit Provider Physician Assistant
DX: N39.0 Urinary tract infection, site not specified (principal)
CPT/HCPCS: 76770; 76857

== ENCOUNTER 2024-04-12 14:11 | Emergency (ER) | payer OTHER, SELFPAY ==
--- NOTE | 2024-04-12 14:13 | XR_ITS ---
PROCEDURE INFORMATION: Exam: XR Right Ankle Exam date and time: 04/12/2024 2:23 PM Age: 24 years old Clinical indication: Pain; Ankle; Right TECHNIQUE: Imaging protocol: Radiologic exam of the right ankle. Views: 3 or more views. COMPARISON: No relevant prior studies available. FINDINGS: Bones/joints: There is no evidence of acute fracture.There is no evidence of malalignment or dislocation. Soft tissues: Normal. IMPRESSION: There is no evidence of acute fracture.There is no evidence of malalignment or dislocation.
[2024-04-12 15:35] VITALS: BP 141/85; PULSE 101; RESP 19; TEMP 36.9; O2SAT 99; BMI 36.6
--- NOTE | 2024-04-12 15:42 | EXP.UTC ---
Discharge Plan Disposition Patient Disposition: Home, Self-Care Condition: Good Prescriptions Prescriptions: No Action levocetirizine [Xyzal] 5 mg tablet 5 mg PO DAILY triamcinolone acetonide 55 mcg aerosol,spray intranasal fluticasone propionate 110 mcg/actuation HFA aerosol inhaler inhalation nebivolol 2.5 mg tablet See Rx Instructions .ROUTE .COMPLEX Qty: 90 1RF Dose Instruction: TAKE ONE TABLET BY MOUTH ONCE A DAY Rx Instructions: TAKE ONE TABLET BY MOUTH ONCE A DAY famotidine 40 mg tablet See Rx Instructions .ROUTE .COMPLEX Qty: 90 2RF Dose Instruction: TAKE ONE TABLET BY MOUTH ONCE A DAY FOR HEARTBURN Rx Instructions: TAKE ONE TABLET BY MOUTH ONCE A DAY FOR HEARTBURN levofloxacin 500 mg tablet 500 mg PO Q24H 7 Days Qty: 7 0RF prednisone 20 mg tablet 20 mg PO BID Qty: 10 0RF Rx Instructions: administer with food or milk phenazopyridine [Pyridium] 200 mg tablet 200 mg PO TID PRN (Reason: pain) Qty: 6 0RF cholecalciferol (vitamin D3) 1,250 mcg (50,000 unit) capsule See Rx Instructions .ROUTE .COMPLEX Qty: 4 0RF Dose Instruction: TAKE ONE CAPSULE BY MOUTH ONCE WEEKLY Rx Instructions: TAKE ONE CAPSULE BY MOUTH ONCE WEEKLY norgestimate-ethinyl estradiol [Estarylla] 0.25-35 mg-mcg tablet 1 tab PO DAILY Qty: 28 1RF montelukast 10 mg tablet 10 mg PO DAILY Rx Instructions: TAKE ONE TABLET BY MOUTH EVERY EVENING FOR ALLERGIES Referrals Follow up/Referrals: Helena Bishop PA [Primary Care Provider] - See instructions Activity Restrictions/Add. Instructions Additional Instructions/Restrictions: Weight bearing as tolerated rest Ice with cold pack for 20 minutes remove may repeat for comfort every hour Wu wrap for support and swelling no less in the shower. Be sure not too tight but not to lose either Elevate with ankle above your heart as much as possible to help reduce swelling and therefore pain Ibuprofen every 6 hours as needed for pain or inflammation. If needs something more you can take Tylenol every 4 hours as needed Follow-up immediately if new or worsening symptoms or no noticeable improvement over the next 3-5 days. call ortho if no improvement Clinical Impressions Clinical Impression: Ankle sprain Instructions Patient Instructions: DI for Ankle Sprain Print Language Print Language: Slovenian Discharge ED Provider: Collette ([facility])Louie [facility] [place] General Stated complaint: right ankle pain Mode of Arrival: Ambulatory Source of Information: Patient Limitations: No Limitations Time Seen by Provider: 04/12/24 15:38 HEENT Symptoms (Recalled from RN notes): No Resp Symptoms (Recalled from RN notes): No Skin Symptoms (Recalled from RN notes): No GI/ Symptoms (Recalled from RN notes): No MS Symptoms (Recalled from RN notes): Yes Card Symptoms (Recalled from RN notes): No Other (Recalled from RN notes): No History of Present Illness Provider Complaint: 24-year-old female presents for right ankle pain. Patient states she twisted her ankle Saturday while at work continue to work it did not seem to bother her too much. Patient states she worked yesterday and and noticed the ankle was hurting more than usual. Related Data Home Medications ?Medication ?Instructions ?Recorded ?Confirmed levocetirizine 5 mg tablet (Xyzal) 5 mg PO DAILY Allergy symptoms 08/03/20 01/03/24 montelukast 10 mg tablet 10 mg PO DAILY Allergy symptoms 09/28/22 01/03/24 fluticasone propionate 110 inhalation 12/09/23 01/03/24 mcg/actuation HFA aerosol inhaler triamcinolone acetonide 55 mcg intranasal 12/09/23 01/03/24 nasal spray aerosol Previous Rx's ?Medication ?Instructions ?Recorded famotidine 40 mg tablet See Rx Instructions .Route 12/09/23 .COMPLEX #90 tabs nebivolol 2.5 mg tablet See Rx Instructions .Route 12/09/23 .COMPLEX #90 tabs levofloxacin 500 mg tablet 500 mg PO Q24H 7 days #7 tabs 01/03/24 phenazopyridine 200 mg tablet 200 mg PO TID PRN pain 6 doses #6 01/03/24 (Pyridium) tabs prednisone 20 mg tablet 20 mg PO BID #10 tabs 01/03/24 cholecalciferol (vitamin D3) 1,250 See Rx Instructions .Route 02/11/24 mcg (50,000 unit) capsule .COMPLEX #4 caps norgestimate 0.25 mg-ethinyl 1 tab PO DAILY #28 tabs 03/10/24 estradiol 35 mcg tablet (Estarylla) Allergies Allergy/AdvReac Type Severity Reaction Status Date / Time Penicillins (PENICILLINS) Allergy Unknown Verified 01/03/24 15:08 peanut AdvReac Severe Verified 01/03/24 15:08 paroxetine (From Paxil) AdvReac Intermediate Diarrhea Verified 01/03/24 15:08 PFSH [facility] Disclaimer: The information contained in this section may have been updated after the patient was seen, as this information can be updated by other users. Medical History , [employer]) History of gastroesophageal reflux (GERD) Hypertension Hypertension Asthma Allergic rhinitis control Anxiety Surgical History , [employer]) History of cholecystectomy Family History , [employer]) Diabetes Coronary artery disease Kidney disease Heart attack FHx: mental illness Cancer Hypertension Thyroid disorder Stroke Asthma Social History , [employer]) Smoking Status: Never smoker alcohol intake: never substance use type: denies use current occupational status: other Travel in the last 8 weeks: None housing: house current occupation: [employer] caffeine: Yes ROS Obtained: Yes Systems reviewed as appropriate & no additional complaints except as documented Physical Exam General General appearance: alert and in no apparent distress Eye Eye exam: Present normal appearance and PERRL Respiratory Respiratory exam: Present normal lung sounds bilaterally Cardiovascular Cardiovascular exam: Present regular rate and normal rhythm Expanded Lower Extremity Exam Right: Ankle image: 1. Tender Neurological Exam Neurological exam: Present alert and oriented X3 Skin Skin exam: Present warm and intact Medical Decision Making Medical Records Medical records reviewed: Yes I reviewed the patient's medical records. Screening: Per USPSTF and CDC recommendations, given the prevalence of disease in our region, it is our hospital?s policy to screen for HIV and viral Hepatitis for all patients aged 18 and over and those with ongoing risk factors. Abdifatah Inquiry Pt receiving controlled substance: No Orders (Tests/Meds): ORDERS Category Date Time Status XR ankle RT min 3V Stat Exams 04/12/24 14:13 Taken
[2024-04-12 15:51] VITALS: BP 141/85; PULSE 101; RESP 19; TEMP 36.9; O2SAT 99
== END 2024-04-12 15:53 | disposition home or self-care (01) ==
PROVIDERS: Emergency Provider Nurse Practitioner Family; PCP Physician Assistant
DX: S93.401A Sprain of unspecified ligament of right ankle, initial encounter (principal); X50.0XXA Overexertion from strenuous movement or load, initial encounter
CPT/HCPCS: 73610; 99213; G0381

== ENCOUNTER 2024-06-08 16:43 | Outpatient (CLI) | payer OTHER, SELFPAY | END 2024-06-08 23:59 | disposition home or self-care (01) | LOC: LAB.DROPOF 16:43 | PROVIDERS: PCP Obstetrics & Gynecology; Visit Provider Obstetrics & Gynecology | DX: N39.0 Urinary tract infection, site not specified (principal) | CPT/HCPCS: 87086; 87088; 87186 ==